=== PATIENT | male | born 1950 | race Caucasian/White ===

== ENCOUNTER 2016-06-07 20:08 | Emergency (ER) | payer OTHER, MEDICARE ==
[~2016-06-07] VITALS: Ht 165.1 cm; Wt 108.9 kg
--- NOTE | 2016-06-07 20:31 | ED GENERAL ADULT ---
History of Present Illness General Chief Complaint: Upper Extremity Problem Stated Complaint: PAIN/REDNESS TO LT ARM Source: patient Exam Limitations: no limitations Vital Signs & Intake/Output Vital Signs & Intake/Output Vital Signs Date Time Temp Pulse Resp B/P Pulse O2 O2 Flow FiO2 Ox Delivery Rate 06/07 2306 98.6 70 18 132/67 97 Room Air 06/075 98.5 70 20 138/74 96 Room Air 06/07 2023 96 Room Air 06/07 2012 98.3 74 18 161/73 97 Room Air ED Intake and Output 06/08 0000 06/07 1200 Intake Total Output Total Balance Patient 240 lb Weight Allergies Coded Allergies: NO KNOWN ALLERGIES (10/25/11) Reconcile Medications Apixaban (Eliquis) 2.5 MG TABLET 1 TAB PO BID dvt Cephalexin (Keflex) 500 MG CAPSULE 1 CAP PO TID arm Gabapentin 100 MG CAPSULE 1 CAP PO TID ESSENTIAL TREMORS (Reported) Vallejo Carbonate (Vallejo Carbonate ER) 450 MG TABLET.ER 1 TAB PO DAILY MENTAL HEALTH (Reported) Lorazepam 0.5 MG TABLET 1 TAB PO Q8H PRN ANXIETY (Reported) Mirtazapine (Remeron) 30 MG TABLET 60 MG PO DAILY MENTAL HEALTH (Reported) Ondansetron HCl 8 MG TABLET 1 TAB PO TID PRN N/V (Reported) Pravastatin Sodium (Pravachol) 40 MG TABLET 1 TAB PO DAILY CHOLESTEROL ( Reported) Sertraline HCl 50 MG TABLET 75 MG PO DAILY MENTAL HEALTH (Reported) Tiotropium [place] (Spiriva) 18 MCG CAP.W.DEV 1 CAP INH DAILY COPD (Reported) Triage Note: PT COMPLAINS OF REDNESS AND WARMTH TO L UPPER ARM, SKIN RED AND HOT TO TOUCH, STATES THAT HE HAD IM NUPOGEN SHOT L DELTOID MONDAY AND ALSO HAD LAC BLOOD DRAW MONDAY Triage Nurses Notes Reviewed? yes HPI: Patient is a 65 year old male with past medical history of bladder cancer, currently on chemotherapy. Patient received an injection of Nupogen on to the left deltoid, today when patient awoke he noticed erythema to his left upper arm anteriorly with mild pain and warmth to the area. Patient had blood drawn from the left antecubital fossa on . Last dose of chemo was Monday, next scheduled for 06/17/16. Positive chills, which patient reports is chronic, unchanged today. Symptoms are currently mild. Denies fevers. (DANIEL KENNEDY) Past History Travel History Traveled to [place] past 21 day No Medical History Any Pertinent Medical History? see below for history Neurological: TREMOR EENT: NONE Cardiovascular: NONE Respiratory: COPD Gastrointestinal: NONE Hepatic: NONE Renal: NONE Musculoskeletal: NONE Psychiatric: depression Endocrine: NONE Blood Disorders: NONE Cancer(s): bladder cancer OUTBOUND SALES REPRESENTATIVE/Reproductive: NONE Surgical History Surgical History: non-contributory Psychosocial History Who do you live with Spouse Services at Home None What is your primary language Croatian Tobacco Use: Quit >30 days ago ETOH Use: denies use Illicit Drug Use: denies illicit drug use Family History Hx Contributory? No (DANIEL KENNEDY) Review of Systems Review of Systems Constitutional: Reports: chills. Denies: fever. EENTM: Reports: no symptoms. Respiratory: Denies: short of breath. Cardiovascular: Denies: chest pain. GI: Reports: nausea (chronic, unchanged). Genitourinary: Reports: see HPI (active bladder cancer). Musculoskeletal: Denies: back pain, neck pain. Skin: Reports: see HPI. Neurological/Psychological: Denies: headache, numbness. Hematologic/Endocrine: Reports: no symptoms. Immunologic/Allergic: Reports: no symptoms. (DANIEL KENNEDY) Physical Exam Physical Exam General Appearance: alert, awake Head: atraumatic, normal appearance Eyes: Bilateral: normal appearance, PERRL, EOMI. Ears, Nose, Throat: hearing grossly normal Neck: normal inspection, full range of motion Respiratory: normal breath sounds, chest non-tender, no respiratory distress, lungs clear Cardiovascular: regular rate/rhythm Peripheral Pulses: 2+ dorsalis pedis (L) Gastrointestinal: soft, non-tender Back: normal inspection, normal range of motion Extremities: normal capillary refill, normal range of motion, erythema and warmth from the left antecubital fossa extending to the left shoulder anteriorly. Mild tenderness to the area. No induration or fluctuance. Neurologic/Psych: awake, alert, oriented x 3, normal gait Skin: see extremities exam Lymphatic: no left axillary lymphadenopathy Core Measures ACS in differential dx? No CVA/TIA Diagnosis: No Severe Sepsis Present: No Septic Shock Present: No (DANIEL KENNEDY) Progress Differential Diagnoses I considered the following diagnoses in my evaluation of the patient: Cellulitis , superficial thrombophlebitis, DVT, abscess, foreign body Plan of Care: Orders Procedure Date/time Status Add-on Test (ER Only) 06/07 2248 Active PARTIAL THROMBOPLASTIN TIME 06/07 2199 Complete PROTHROMBIN TIME 06/07 2199 Complete BLOOD CULTURE 06/07 2044 Active CBC WITHOUT DIFFERENTIAL 06/07 2044 Complete BASIC METABOLIC PANEL 06/07 2044 Complete Laboratory Tests 06/07/162199: Anion Gap 10, Estimated GFR 51 L, BUN/Creatinine Ratio 20.7, Glucose 97, Calcium 8.2 L, PT 11.0, INR 1.05, APTT 28, CBC w Diff NO MAN DIFF REQ, RBC 3.58 L, MCV 87.9, MCH 29.5, RDW 13.7, MPV 9.0, Gran % 28.8 L, Lymphocytes % 67.0 H , Monocytes % 2.2, Eosinophils % 1.9, Basophils % 0.1, Absolute Granulocytes 0.2 L, Absolute Lymphocytes 0.4 L, Absolute Monocytes 0 L, Absolute Eosinophils 0 , Absolute Basophils 0, PUBS MCHC 33.6 06/07/162149: APTT Cancelled Microbiology 06/07 2199 BLOOD: Blood Culture - RECD 06/07 2144 BLOOD: Blood Culture - RECD Discussed with Dr. Amanda. 2229: Discussed CBC and ultrasound results with Dr. Alvarado: start patient on Apixaban 2.5 mg BID and Keflex. Have patient follow up in the office on Monday for further evaluation. Fax chart to [phone]. 2240: Results discussed with patient and his son. (MARV ZAVALA,DANIEL) Diagnostic Imaging: Viewed by Me: Ultrasound. Discussed w/RAD: Ultrasound. Initial ED EKG: none Comments: PATIENT: PEDRO LUIS FLOWERS PRESENT AGE: 65 PATIENT ACCOUNT NO: [id number] : 48 LOCATION: [facility] ORDERING PHYSICIAN: DANIEL ZAVALA SERVICE DATE: 06/07/16-2044 EXAM TYPE: US - US-UNILATERAL VENOUS DOPPLER EXAMINATION: DUPLEX DOPPLER UPPER EXTREMITY, left CLINICAL INFORMATION: Edema and swelling. Pain. Discoloration. COMPARISON: None. TECHNIQUE: Duplex Doppler performed of left upper extremity deep veins with grayscale, color Doppler and spectral Doppler examination. FINDINGS: Partially occlusive thrombus in the lower to mid cephalic vein. Remainder the veins seen from the neck through the forearm are normal. IMPRESSION: Partially occlusive thrombus in the lower to mid cephalic vein. This critical result was discussed with Dr. Lund on 06/07/2016, 9:50 PM and it was ascertained that the content and urgency of the report was understood at the time of direct communication. DICTATED BY: RENZO STANLEY MD DATE/TIME DICTATED:06/07/162137 UTILITY MECHANIC SUPERVISOR:LAUREN DATE/TIME TRANSCRIBED:06/07/162137 CONFIDENTIAL, DO NOT COPY WITHOUT APPROPRIATE AUTHORIZATION. <Electronically signed in Other Vendor System> SIGNED BY: RENZO STANLEY MD 06/07/162152 (DANIEL KENNEDY) Departure Departure Disposition: HOME OR SELF CARE Condition: Stable Clinical Impression Primary Impression: Cephalic vein thrombosis, left Referrals: MARY ALVARADO MD Additional Instructions: Follow up with Dr. Alvarado on Monday, call in the morning for appointment. Take Apixaban and keflex as directed. Apixaban is an anticoagulant and can increase your risk of bleeding. If you have any abnormal bleeding then you need to come to the emergency department immediately. You should also return to the ER immediately if you sustain any head injuries, or trauma, chest pain, difficulty breathing. Departure Forms: Customer Survey General Discharge Information Prescriptions: Current Visit Scripts Apixaban (Eliquis) 1 TAB PO BID #60 TAB Cephalexin (Keflex) 1 CAP PO TID #21 CAP (DANIEL KENNEDY) PA/RIBBON TIER Co-Sign Statement Statement: ED Attending supervision documentation- [X] I saw and evaluated the patient. I have also reviewed all the pertinent lab results and diagnostic results. I agree with the findings and the plan of care as documented in the PA's/RIBBON TIER's documentation. [X] I have reviewed the ED Record and agree with the PA's/RIBBON TIER's documentation. [] Additions or exceptions (if any) to the PAs/RIBBON TIER's note and plan are summarized below: [] (VIRGINIA OCAMPO,STACY Cavazos) Critical Care Note Critical Care Note Critical Care Time: non-applicable (DANIEL KENNEDY)
[2016-06-07] MEDS ORDERED: LORAZEPAM0.5 M1 PO (21:41)
[2016-06-07] MEDS ORDERED: ONDANSETRON HCL8 MG PO (21:41)
[2016-06-07] MEDS ORDERED: LITHIUM CARBON450 M1 PO (21:42)
[2016-06-07] MEDS ORDERED: SERTRALINE HCL50 MG PO (21:42)
[2016-06-07] MEDS ORDERED: REMERON30 M3 PO (21:43)
[2016-06-07] MEDS ORDERED: PRAVACHOL40 M1 PO (21:44)
[2016-06-07] MEDS ORDERED: SPIRIVA18 MCG INH (21:44)
[2016-06-07] MEDS ORDERED: GABAPENTIN100 M2 PO (21:44)
--- NOTE | 2016-06-07 21:53 | ULTRASOUND REPORT ---
EXAMINATION: DUPLEX DOPPLER UPPER EXTREMITY, left CLINICAL INFORMATION: Edema and swelling. Pain. Discoloration. COMPARISON: None. TECHNIQUE: Duplex Doppler performed of left upper extremity deep veins with grayscale, color Doppler and spectral Doppler examination. FINDINGS: Partially occlusive thrombus in the lower to mid cephalic vein. Remainder the veins seen from the neck through the forearm are normal. IMPRESSION: Partially occlusive thrombus in the lower to mid cephalic vein. This critical result was discussed with Dr. Lund on 06/07/2016, 9:50 PM and it was ascertained that the content and urgency of the report was understood at the time of direct communication.
[2016-06-07 22:16] LABS: ABSOLUTE BASOPHIL COUNT 0 /CUMM (0.0-0.2); ABSOLUTE EOSINOPHIL COUNT 0 /CUMM (0.0-0.7); ABSOLUTE GRANULOCYTE CT 0.2 /CUMM (1.4-6.5); ABSOLUTE LYMPH COUNT 0.4 /CUMM (1.2-3.4); ABSOLUTE MONOCYTE COUNT 0 /CUMM (0.10-0.60); BASOPHIL % 0.1 % (0.0-2.0); EOSINOPHIL % 1.9 % (0-5); HEMATOCRIT 31.5 % (42-52); MEAN CORPUSCULAR HGB 29.5 PG (27.0-31.0); MEAN CORPUSCULAR HGB CONC 33.6 G/DL (33.0-37.0); MEAN CORPUSCULAR VOLUME 87.9 FL (80.0-94.0); PLATELET COUNT 64 /CUMM (130-400); RBC DISTRIBUTION WIDTH 13.7 % (11.5-14.5); RED BLOOD CELL CT 3.58 /CUMM (4.70-6.10)
[2016-06-07 22:17] LABS: GRANULOCYTE % 28.8 % (42.2-75.2)
[2016-06-07 22:18] LABS: WHITE BLOOD CELL COUNT 0.7 /CUMM (4.8-10.8)
[2016-06-07] MEDS ORDERED: KEFLEX500 M1 PO (22:56)
[2016-06-07] MEDS ORDERED: ELIQUIS2.5 M1 PO (22:56)
[2016-06-07 23:04] LABS: PTT 28 SEC (25-37)
[2016-06-07 23:06] VITALS: BP 132/67
== END 2016-06-07 23:06 ==
LOC: ERH 20:08
PROVIDERS: Physician Assistant
DX: I82.90 Acute embolism and thrombosis of unspecified vein (principal)
CPT/HCPCS: 87040